=== PATIENT | female | born 2005 | race Two or more races ===

== ENCOUNTER 2023-03-23 01:49 | Emergency (ER) | payer BC ==
[~2023-03-23] VITALS: Ht 160 cm; Wt 77.1 kg
[2023-03-23] MEDS ORDERED: PHENAGIL TABLE1 EACH PO (04:58)
== END 2023-03-23 05:03 ==
LOC: EMR PED 01:49
DX: H83.8X1 Other specified diseases of right inner ear (principal)